=== PATIENT | female | born 1960 | race Caucasian/White ===

== ENCOUNTER → 2023-12-25 14:13 | Outpatient (REF) | payer BC, SELFPAY ==
[2023-12-25 14:46] LABS: % Basophils 1.2 % (0-2); % Eosinophils 3.3 % (0-6); % Immature Granulocytes 0.2 % (0-0.5); % Lymphocytes 46.8 % (20.5-51.1); % Monocytes 4.7 % (1.7-9.3); % Neutrophils 43.8 % (42.2-75.2); Absolute Basophils 0.1 10^3/uL (0-0.2); Absolute Eosinophils 0.2 10^3/uL (0-0.7); Absolute Lymphocytes 2.7 10^3/uL (1.2-3.4); Absolute Monocytes 0.3 10^3/uL (0.1-0.6); Absolute Neutrophils 2.5 10^3/uL (1.4-6.5); Hematocrit 34.1 % (37.0-47.0); Hemoglobin 12.2 g/dL (12.0-16.0); Mean Corp Hgb Conc. 35.8 g/dL (33.0-37.0); Mean Corpuscular Volume 86.5 fL (81.0-99.0); Nucleated Red Blood Cells % 0 %; Platelet Count 232 10^3/uL (130-400); Red Blood Cell Count 3.94 10^6/uL (4.20-5.40); Red Cell Dist. Width 12.1 % (11.5-14.5); White Blood Cell Count 5.8 10^3/uL (4.8-10.8)
[2023-12-25 14:48] LABS: Blood Urea Nitrogen 14 mg/dl (7-17); Calcium 9.3 mg/dl (8.4-10.2); Carbon Dioxide 26 mmol/L (22-30); Chloride 105 mmol/L (98-107); Glucose 107 mg/dl (70-99); Iron 168 ug/dl (37-170); Sodium 137 mmol/L (135-145); eGFR > 60.00
[2023-12-25 14:56] LABS: Potassium 4.4 mmol/L (3.5-5.1)
[2023-12-25 14:57] LABS: Percent Saturation 58 % (20-50); Total Iron Binding Capacity 289 ug/dl (265-497)
[2023-12-25 15:23] LABS: Ferritin 41.4 ng/ml (11.1-264.0)
== END ==
LOC: REG 14:13
PROVIDERS: ATTENDING PHYSICIAN Internal Medicine Hematology & Oncology; FAMILY PHYSICIAN Orthopaedic Surgery; REFERRING PHYSICIAN Family Medicine
DX: D17.9 Benign lipomatous neoplasm, unspecified (principal); Z83.49 Family history of other endocrine, nutritional and metabolic diseases; R79.0 Abnormal level of blood mineral; E83.110 Hereditary hemochromatosis
CPT/HCPCS: 36415; 80048; 82728; 83540; 83550; 85025

== ENCOUNTER → 2024-02-24 12:08 | Outpatient (REF) | payer BC, SELFPAY ==
[2024-02-24 14:00] LABS: % Eosinophils 3.2 % (0-6); % Immature Granulocytes 0.2 % (0-0.5); % Lymphocytes 43.1 % (20.5-51.1); % Monocytes 5.7 % (1.7-9.3); % Neutrophils 46.8 % (42.2-75.2); Absolute Basophils 0.1 10^3/uL (0-0.2); Absolute Eosinophils 0.2 10^3/uL (0-0.7); Absolute Lymphocytes 2.6 10^3/uL (1.2-3.4); Absolute Monocytes 0.3 10^3/uL (0.1-0.6); Absolute Neutrophils 2.8 10^3/uL (1.4-6.5); Hematocrit 36.7 % (37.0-47.0); Hemoglobin 12.7 g/dL (12.0-16.0); Mean Corp Hgb Conc. 34.6 g/dL (33.0-37.0); Mean Corpuscular Hgb 30.9 pg (27.0-31.0); Mean Corpuscular Volume 89.3 fL (81.0-99.0); Nucleated Red Blood Cells % 0 %; Platelet Count 237 10^3/uL (130-400); Red Blood Cell Count 4.11 10^6/uL (4.20-5.40)
[2024-02-24 14:32] LABS: Iron 124 ug/dl (37-170)
[2024-02-24 14:43] LABS: Percent Saturation 43 % (20-50); Total Iron Binding Capacity 285 ug/dl (265-497)
[2024-02-24 15:07] LABS: Ferritin 37.3 ng/ml (11.1-264.0)
== END ==
LOC: REG 12:08
PROVIDERS: ATTENDING PHYSICIAN Family Medicine; FAMILY PHYSICIAN Internal Medicine Hematology & Oncology; OTHER PHYSICIAN Orthopaedic Surgery; REFERRING PHYSICIAN Orthopaedic Surgery
DX: M25.552 Pain in left hip (principal); Z83.49 Family history of other endocrine, nutritional and metabolic diseases; R79.0 Abnormal level of blood mineral; E83.110 Hereditary hemochromatosis; D17.9 Benign lipomatous neoplasm, unspecified; S83.282A Other tear of lateral meniscus, current injury, left knee, initial encounter
CPT/HCPCS: 36415; 73502; 73560; 82728; 83540; 83550; 85025

== ENCOUNTER → 2024-11-26 07:26 | Outpatient (REF) | payer BC, SELFPAY | LOC: MRI 07:26 | PROVIDERS: FAMILY PHYSICIAN Family Medicine | DX: R77.2 Abnormality of alphafetoprotein (principal) | CPT/HCPCS: 74183; 76391; A9575 ==

== ENCOUNTER → 2025-02-03 12:13 | Outpatient (REF) | payer BC, SELFPAY ==
[2025-02-03 13:26] LABS: ALT (SGPT) 22 U/L (0-35); AST (SGOT) 23 U/L (14-36); HDL Cholesterol 42 mg/dl; LDL Cholesterol, Calculated 102 mg/dl; Total Cholesterol 193 mg/dl (50-199); Triglyceride 248 mg/dl (10-149); Very Low Density Lipoprotein 49 mg/dl (0-30)
== END ==
LOC: REG 12:13
PROVIDERS: ATTENDING PHYSICIAN Family Medicine
DX: E78.2 Mixed hyperlipidemia (principal)
CPT/HCPCS: 36415; 80061; 84450; 84460

== ENCOUNTER → 2025-05-13 16:08 | Outpatient (REF) | payer BC, SELFPAY ==
[2025-05-13 16:39] LABS: Hematocrit 35.7 % (37.0-47.0); Hemoglobin 12.1 g/dL (12.0-16.0); Mean Corp Hgb Conc. 33.9 g/dL (33.0-37.0); Mean Corpuscular Volume 89.3 fL (81.0-99.0); Nucleated Red Blood Cells % 0 %; Platelet Count 188 10^3/uL (130-400); Red Cell Dist. Width 11.9 % (11.5-14.5)
[2025-05-13 16:59] LABS: Iron 118 ug/dl (37-170)
[2025-05-13 17:09] LABS: Total Iron Binding Capacity 285 ug/dl (265-497)
[2025-05-13 17:36] LABS: Ferritin 48.9 ng/ml (11.1-264.0)
== END ==
LOC: REG 16:08
PROVIDERS: ATTENDING PHYSICIAN Internal Medicine Hematology & Oncology; FAMILY PHYSICIAN Family Medicine; OTHER PHYSICIAN Nurse Practitioner Adult Health
DX: J45.20 Mild intermittent asthma, uncomplicated (principal); Z83.49 Family history of other endocrine, nutritional and metabolic diseases; R79.0 Abnormal level of blood mineral; E83.110 Hereditary hemochromatosis; R63.4 Abnormal weight loss
CPT/HCPCS: 36415; 71046; 82728; 83540; 83550; 85025

== ENCOUNTER → 2025-06-07 08:51 | Outpatient (REF) | payer BC, MEDICARE, SELFPAY | LOC: DHSLP 08:51 | PROVIDERS: ATTENDING PHYSICIAN Internal Medicine Critical Care Medicine | DX: G47.19 Other hypersomnia (principal); G47.00 Insomnia, unspecified; R06.83 Snoring | CPT/HCPCS: 95800 ==

== ENCOUNTER 2025-09-04 16:20 | Inpatient (IN) | payer MEDICARE, SELFPAY ==
[2025-09-04] VITALS (13 sets, daily range): BP systolic 108–126; BP diastolic 50–71; BMI 25.9
[2025-09-04] MEDS: ZOFRAN 4 MG IV (11:11)
[2025-09-04] MEDS: DILAUDID 1 MG IV (11:11)
[2025-09-04] MEDS: NSS 1000 IV ×2 (11:14→17:26)
[2025-09-04] MEDS: OMNIPAQUE 50 ML PO (11:14)
[2025-09-04 11:32] LABS: Hematocrit 34.4 % (37.0-47.0); Hemoglobin 11.7 g/dL (12.0-16.0); Mean Corp Hgb Conc. 34.0 g/dL (33.0-37.0); Mean Corpuscular Volume 88.4 fL (81.0-99.0); Nucleated Red Blood Cells % 0 %; Platelet Count 184 10^3/uL (130-400); Red Cell Dist. Width 12.1 % (11.5-14.5)
[2025-09-04 11:33] LABS: INR 0.98; PT 13.2 Sec (11.4-14.6)
[2025-09-04 11:34] LABS: APTT 28.0 Sec (23.4-35.0)
[2025-09-04 11:41] LABS: ALT (SGPT) 24 U/L (0-35); AST (SGOT) 20 U/L (14-36); Albumin 4.4 g/dl (3.5-5.0); Alkaline Phosphatase 100 U/L (38-126); Blood Urea Nitrogen 14 mg/dl (7-17); Calcium 9.2 mg/dl (8.4-10.2); Carbon Dioxide 27 mmol/L (22-30); Chloride 100 mmol/L (98-107); Estimated Creatinine Clearance 72 ml/min; Glucose 137 mg/dl (70-99); Lipase 65 U/L (23-300); Potassium 3.9 mmol/L (3.5-5.1); Sodium 132 mmol/L (135-145); Total Protein 7.1 g/dl (6.3-8.2); eGFR > 60.00
--- NOTE | 2025-09-04 12:46 | ED.GENMED ---
History of Present Illness
<Nohemi Combs PA-C - Last Filed: 09/04/25 14:58>
General
Chief Complaint: Abdominal Pain
Time Seen by Provider: 09/04/25 10:09
History of Present Illness
History of Present Illness:
See MDM
Past History
<Nohemi Combs PA-C - Last Filed: 09/04/25 14:58>
Past History
ED Past Medical History: Hypercholesterolemia, Psychiatric and Other (Vestibular migraines)
ED Past Surgical History: Gynecological and Orthopedic
Social History
Tobacco: Non-smoker
Alcohol: None
Drug: None
Personal:
Living: with family
Phy Exam
<Nohemi Combs PA-C - Last Filed: 09/04/25 14:58>
Physical Exam
Physical Exam:
See MDM
Course
<Nohemi Combs PA-C - Last Filed: 09/04/25 14:58>
Orders/Labs/Results
Orders:
Orders
09/04/25 Lunch
NPO
Allow oral meds: Yes
Allow clear liquids: No
NPO with Ice Chips: Yes
09/04/25 10:49
Iohexol [Omnipaque] See Protocol PO NOW STA
09/04/25 10:50
0.9% Sodium Chloride 1000 ml [Nss] 1,000 ml IV BOLUS
09/04/25 11:00
HYDROmorphone [Dilaudid] 1 mg IV NOW STA
Ondansetron Injectable [Zofran] 4 mg IV NOW STA
09/04/25 11:07
Complete Blood Count/With Diff Urgent
Comprehensive Metabolic Panel Urgent
Lactic Acid Urgent
Lipase Urgent
PTT Urgent
Prothrombin Time Urgent
09/04/25 11:58
CT Abd/pel W Iv And Oral Contr Urgent
Comment:
Reason For Exam: colonoscopy. sevre pain
09/04/25 12:49
Piperacillin/Tazo 3.375 Gram [Zosyn] 3.375 gram in 50 ml IV NOW
09/04/25 12:53
HYDROmorphone [Dilaudid] 0.25 mg IV NOW STA
09/04/25 13:27
Electrocardiogram (*1) Urgent
Reason for Study: PreOp
CR Chest Portable - 1 View Urgent
Comment:
Reason For Exam: preop
Reason Study Needs to be Portable: Unable to Transport
09/04/25 13:59
HYDROmorphone [Dilaudid] 0.5 mg IV Q4HPRN PRN
HYDROmorphone [Dilaudid] 1 mg IV Q4HPRN PRN
Ketorolac [Toradol] 15 mg IV Q6HPRN PRN
09/04/25 14:00
0.9% Sodium Chloride 1000 ml [Nss] 1,000 ml IV 125 mls/hr
09/04/25 14:01
Type+Screen Urgent
09/04/25 14:14
Fentanyl Citrate/Pf [Sublimaze] 100 mcg .ROUTE .STK-MED ONE
09/04/25 14:15
0.9% Sodium Chloride 1000 ml [Nss] 1,000 ml IV 125 mls/hr
09/04/25 14:22
Dexamethasone Sod Phosphate [Decadron] 20 mg .ROUTE .STK-MED ONE
Lidocaine HCl/Pf [Xylocaine-Mpf 1% Vial] 50 mg .ROUTE .STK-MED ONE
Metoclopramide [Reglan] 10 mg .ROUTE .STK-MED ONE
Phenylephrine HCl/0.9% NaCl [Alan-Synephrine] 1,000 mcg .ROUTE .STK-MED ONE
Propofol [Diprivan] 20 ml .ROUTE .STK-MED
Rocuronium [place] [Rocuronium] 100 mg .ROUTE .STK-MED ONE
Sugammadex Sodium [Bridion] 200 mg .ROUTE .STK-MED ONE
09/04/25 14:23
Famotidine [Pepcid] 20 mg .ROUTE .STK-MED ONE
Fentanyl Citrate/Pf [Sublimaze] 25 mcg IV [id number] PRN
HYDROmorphone [Dilaudid] 0.25 mg IV PACU-Q5MPRN PRN
HYDROmorphone [Dilaudid] 0.5 mg IV PACU-Q5MPRN PRN
Ondansetron Injectable [Zofran] 4 mg IV PACU-ONCEPRN PRN
Prochlorperazine [Compazine] 5 mg IV PACU-ONCEPRN PRN
09/04/25 14:24
Bupivacaine 0.25%Pf/Epinephrin [Sensorcaine-Epi 0.25%-0.0005] 30 ml .ROUTE .STK-MED ONE
Notify MD As Directed
Notify physician if: for SDS patients with known or suspected sleep obstructive sleep apnea, monitor in the
PACU.
Notify MD for any apneic/desaturation episodes
O2 Therapy [RESP] Urgent
Titrate/Wean O2 to maintain O2 sat greater than (%): 92
Special Instructions: -Provide supplemental oxygen to achieve O2 sat of 92% or greater.
-After 15 min, may wean O2 and discontinue if patient is able to maintain O2 sat of 92%
or greater during recovery period.
If patient is a discharge home, without oxygen therapy, notify anestheiologist if
unable to maintain O2 SAT of 92% or greater on room air for MD clearance.
09/04/25 14:30
Normosol (Mult Electrolytes) [Normosol-R/Plasmalyte-A] 1,000 ml IV PER PROTOCOL
09/04/25 14:45
Succinylcholine Chloride [Succinylcholine] 200 mg .ROUTE .STK-MED ONE
09/04/25 14:48
HYDROmorphone [Dilaudid] 0.5 mg IV Q4HPRN PRN
HYDROmorphone [Dilaudid] 1 mg IV Q4HPRN PRN
Ketorolac [Toradol] 15 mg IV Q6HPRN PRN
09/04/25 14:51
Acetaminophen 1000MG/100Ml [Ofirmev] 1,000 mg in 100 ml .ROUTE .STK-MED
Abnormal Lab Results
09/04/25
11:07
WBC 11.8 H 10^3/uL
(4.8-10.8)
RBC 3.89 L 10^6/uL
(4.20-5.40)
Hgb 11.7 L g/dL
(12.0-16.0)
Hct 34.4 L %
(37.0-47.0)
Absolute Neuts (auto) 9.6 H 10^3/uL
(1.4-6.5)
Absolute Monos (auto) 0.7 H 10^3/uL
(0.1-0.6)
Neutrophils % 81.7 H %
(42.2-75.2)
Lymphocytes % 11.7 L %
(20.5-51.1)
Sodium 132 L mmol/L
(135-145)
Glucose 137 H mg/dl
(70-99)
09/04/25 11:07
09/04/25 11:07
Vital Signs
Initial and Last Documented VS:
Initial Vital Signs
Temp Pulse Resp BP Pulse Ox
36.4 C 71 16 114/71 100
09/04/25 09:43 09/04/25 09:43 09/04/25 09:43 09/04/25 09:43 09/04/25 09:43
Last Documented Vital Signs
Temp Pulse Resp BP Pulse Ox
36.9 C 68 20 123/63 97
09/04/25 11:20 09/04/25 11:20 09/04/25 11:20 09/04/25 14:00 09/04/25 14:00
Anabellalt;Alexander Anderson, DO - Last Filed: 09/04/25 13:36>
Orders/Labs/Results
Orders:
Orders
09/04/25 Lunch
NPO
Allow oral meds: Yes
Allow clear liquids: No
NPO with Ice Chips: Yes
09/04/25 10:49
Iohexol [Omnipaque] See Protocol PO NOW STA
09/04/25 10:50
0.9% Sodium Chloride 1000 ml [Nss] 1,000 ml IV BOLUS
09/04/25 11:00
HYDROmorphone [Dilaudid] 1 mg IV NOW STA
Ondansetron Injectable [Zofran] 4 mg IV NOW STA
09/04/25 11:07
Complete Blood Count/With Diff Urgent
Comprehensive Metabolic Panel Urgent
Lactic Acid Urgent
Lipase Urgent
PTT Urgent
Prothrombin Time Urgent
09/04/25 11:58
CT Abd/pel W Iv And Oral Contr Urgent
Comment:
Reason For Exam: colonoscopy. sevre pain
09/04/25 12:49
Piperacillin/Tazo 3.375 Gram [Zosyn] 3.375 gram in 50 ml IV NOW
09/04/25 12:53
HYDROmorphone [Dilaudid] 0.25 mg IV NOW STA
09/04/25 13:27
Electrocardiogram (*1) Urgent
Reason for Study: PreOp
CR Chest Portable - 1 View Urgent
Comment:
Reason For Exam: preop
Reason Study Needs to be Portable: Unable to Transport
09/04/25 13:59
HYDROmorphone [Dilaudid] 0.5 mg IV Q4HPRN PRN
HYDROmorphone [Dilaudid] 1 mg IV Q4HPRN PRN
Ketorolac [Toradol] 15 mg IV Q6HPRN PRN
09/04/25 14:00
0.9% Sodium Chloride 1000 ml [Nss] 1,000 ml IV 125 mls/hr
09/04/25 14:01
Type+Screen Urgent
09/04/25 14:14
Fentanyl Citrate/Pf [Sublimaze] 100 mcg .ROUTE .STK-MED ONE
09/04/25 14:15
0.9% Sodium Chloride 1000 ml [Nss] 1,000 ml IV 125 mls/hr
09/04/25 14:22
Dexamethasone Sod Phosphate [Decadron] 20 mg .ROUTE .STK-MED ONE
Lidocaine HCl/Pf [Xylocaine-Mpf 1% Vial] 50 mg .ROUTE .STK-MED ONE
Metoclopramide [Reglan] 10 mg .ROUTE .STK-MED ONE
Phenylephrine HCl/0.9% NaCl [Alan-Synephrine] 1,000 mcg .ROUTE .STK-MED ONE
Propofol [Diprivan] 20 ml .ROUTE .STK-MED
Rocuronium [place] [Rocuronium] 100 mg .ROUTE .STK-MED ONE
Sugammadex Sodium [Bridion] 200 mg .ROUTE .STK-MED ONE
09/04/25 14:23
Famotidine [Pepcid] 20 mg .ROUTE .STK-MED ONE
Fentanyl Citrate/Pf [Sublimaze] 25 mcg IV [id number] PRN
HYDROmorphone [Dilaudid] 0.25 mg IV PACU-Q5MPRN PRN
HYDROmorphone [Dilaudid] 0.5 mg IV PACU-Q5MPRN PRN
Ondansetron Injectable [Zofran] 4 mg IV PACU-ONCEPRN PRN
Prochlorperazine [Compazine] 5 mg IV PACU-ONCEPRN PRN
09/04/25 14:24
Bupivacaine 0.25%Pf/Epinephrin [Sensorcaine-Epi 0.25%-0.0005] 30 ml .ROUTE .STK-MED ONE
Notify MD As Directed
Notify physician if: for SDS patients with known or suspected sleep obstructive sleep apnea, monitor in the
PACU.
Notify MD for any apneic/desaturation episodes
O2 Therapy [RESP] Urgent
Titrate/Wean O2 to maintain O2 sat greater than (%): 92
Special Instructions: -Provide supplemental oxygen to achieve O2 sat of 92% or greater.
-After 15 min, may wean O2 and discontinue if patient is able to maintain O2 sat of 92%
or greater during recovery period.
If patient is a discharge home, without oxygen therapy, notify anestheiologist if
unable to maintain O2 SAT of 92% or greater on room air for MD clearance.
09/04/25 14:30
Normosol (Mult Electrolytes) [Normosol-R/Plasmalyte-A] 1,000 ml IV PER PROTOCOL
09/04/25 14:45
Succinylcholine Chloride [Succinylcholine] 200 mg .ROUTE .STK-MED ONE
09/04/25 14:48
HYDROmorphone [Dilaudid] 0.5 mg IV Q4HPRN PRN
HYDROmorphone [Dilaudid] 1 mg IV Q4HPRN PRN
Ketorolac [Toradol] 15 mg IV Q6HPRN PRN
09/04/25 14:51
Acetaminophen 1000MG/100Ml [Ofirmev] 1,000 mg in 100 ml .ROUTE .STK-MED
Abnormal Lab Results
09/04/25
11:07
WBC 11.8 H 10^3/uL
(4.8-10.8)
RBC 3.89 L 10^6/uL
(4.20-5.40)
Hgb 11.7 L g/dL
(12.0-16.0)
Hct 34.4 L %
(37.0-47.0)
Absolute Neuts (auto) 9.6 H 10^3/uL
(1.4-6.5)
Absolute Monos (auto) 0.7 H 10^3/uL
(0.1-0.6)
Neutrophils % 81.7 H %
(42.2-75.2)
Lymphocytes % 11.7 L %
(20.5-51.1)
Sodium 132 L mmol/L
(135-145)
Glucose 137 H mg/dl
(70-99)
09/04/25 11:07
09/04/25 11:07
Vital Signs
Initial and Last Documented VS:
Initial Vital Signs
Temp Pulse Resp BP Pulse Ox
36.4 C 71 16 114/71 100
09/04/25 09:43 09/04/25 09:43 09/04/25 09:43 09/04/25 09:43 09/04/25 09:43
Last Documented Vital Signs
Temp Pulse Resp BP Pulse Ox
36.9 C 68 20 123/63 97
09/04/25 11:20 09/04/25 11:20 09/04/25 11:20 09/04/25 14:00 09/04/25 14:00
<Nohemi Combs PA-C - Last Filed: 09/04/25 14:58>
MDM/Problems Addressed
Differential Diagnosis Includes:
seE mdm
MDM/Problems Addressed:
Note:
CHIEF COMPLAINT(S)
Severe right-sided abdominal pain.
HISTORY OF PRESENT ILLNESS
The patient is a 65 y/o female who presents with severe right-sided abdominal pain that has progressively worsened. The pain started following a colonoscopy with a polypectomy performed two days ago. The patient describes the pain as spreading
across her abdomen. She reports associated symptoms of nausea, bloating, and dizziness. The nausea is severe enough that even water intake exacerbates it. She has not eaten since the preparation for the colonoscopy.
The patient has a history of having had polyps removed five years prior, necessitating the recent colonoscopy. Although she has undergone colonoscopies before, she has never experienced symptoms like these post-procedure. The patient tried to
contact her transmission rebuilder but did not receive a callback.
no fever, chills, vomiting, diarrhea, rectal bleeding
PAST MEDICAL AND SURIGICAL HISTORY
The patient has a history of hemochromatosis, hyperlipidemia (high cholesterol and triglycerides), and recently discovered hypothyroidism, although she is not on medication for the thyroid condition as it is reportedly being 'destroyed.'
ALLERGIES
The patient is allergic to penicillin and adhesive tape. She also reported an allergic reaction to an MRI contrast in the past, which resulted in hives and throat swelling.
[employer]ING [employer]
There is some concern regarding access to immediate follow-up care as the patient could not get in touch with her transmission rebuilder regarding her symptoms post-procedure.
MEDICATIONS
The patient is not on any medication for her newly diagnosed low thyroid levels.
REVIEW OF SYSTEMS
- Gastrointestinal: The patient reports severe right-sided abdominal pain, nausea that is exacerbated even by water, bloating, no bowel movement since the colonoscopy preparation, and no blood in the stool.
- Neurological: The patient reports dizziness.
PHYSICAL EXAM
GENERAL: Alert , in no apparent distress
EYE: pupils equal and reactive
NECK: Supple
ENT: o/p clr, mmm.
CARDIAC: Regular rate and rhythm .
LUNGS: Clear breath sounds bilaterally, no acute respiratory distress, no wheezes/rales/rhonchi
ABDOMEN: Soft, significant abdominal tenderness especially in the right lower quadrant with peritonitis and voluntary guarding , no r/g, no cvat, normal bowel sounds
NEUROLOGICAL: Alert and oriented, no focal neuro deficits
SKIN: Warm and dry, skin intact.
MUSCULOSKELETAL: No edema, well perfused. neg sandy's sign
PSYCH: Normal and appropriate interaction.
PROBLEM LIST
- Acute: Severe right-sided abdominal pain post-colonoscopy, nausea, dizziness.
- Chronic: Hemochromatosis, hyperlipidemia, hypothyroidism (untreated).
PLAN
The patient will be given pain medication for relief. She is to have nothing to eat or drink until further results are available to prevent exacerbation of her symptoms and to prepare her for any potential further testing or interventions.
DIFFERENTIAL DIAGNOSIS
The Differential Diagnosis includes, in no particular order and is not limited to:
1. Post-polypectomy syndrome
2. Intestinal perforation
3. Hemorrhage
4. Colitis
5. Bowel obstruction
6. Diverticulitis
7. Appendicitis
8. Infectious gastroenteritis
9. Electrolyte imbalance
10. Peptic ulcer disease
greg holt 65 y;o F
had colonoscopy 2 days ago outside center
pain, nausea, bloating
peritonitc abdomen, tender RLQ;
ct reading as acute appendicitis, no perf; lactic normal stable vitals
Seen by Dr. Martínez who will take her to the OR
<Nohemi Combs PA-C - Last Filed: 09/04/25 14:58>
*Pulse Oximetry
SaO2: 96
Oxygen Mode of Delivery: Room air
Patient hypoxic: no (97)
*Critical Care Note
Total Time (30-74mins, 75-104mins- exclusive of procedures): Not Applicable
ED Attending Note
<Nohemi Combs PA-C - Last Filed: 09/04/25 14:58>
-
Portions of this chart may have been created with voice recognition software.� Occasional wrong word or��sound alike� substitutions may have occurred due to the inherent limitations of voice recognition software.
<Alexander Anderson DO - Last Filed: 09/04/25 13:36>
ED Attending Note
Patient seen and examined by attending physician: Yes
I performed the substantive portion of visit, reviewed & personally made and approve the management plan that is documented in note by myself or [place].: Yes
ED Attending Note:
I agree with Shelley's note
65-year-old female presents with abdominal pain. She had a recent colonoscopy with polyp removal. She felt fine immediately after the procedure but developed abdominal pain the following day which is increased in intensity today.
Abdomen: Pretty tender to palpation diffusely particular in the right lower quadrant
CT shows acute appendicitis. General discussed with surgery. IV antibiotics and hospitalize
Discharge Plan
Departure
Patient Disposition: Admit
Date of Disposition: 09/04/25
Time of Disposition: 13:25
Admit to: Med/Surg
Admit to doctor: armen
Presentation/result/management discussed w/ accepting MD/DO: armen
Patient with high blood pressure during this ER visit?: No
Condition: Fair
Covid-19: Not Applicable
Discharge Problem:
Acute appendicitis
Interventions
Interventions:
*Risk Screen - Suicide Last Done: 09/04/25 09:44
*General Assessment Last Done: 09/04/25 11:20
*Neglect/Abuse Screening Last Done: 09/04/25 09:44
*ED- Fall Risk Assessment Last Done: 09/04/25 11:20
*ED COVID-19 Vaccine History Last Done: 09/04/25 11:20
*ED Influenza Vaccine History Last Done: 09/04/25 11:20
*Nursing Disposition Last Done: 09/04/25 14:10
KD-Vlhewx-Esqqnsacor Assessment Last Done: 09/04/25 11:20
Discharge Date and Time
Discharge Date/Time: 09/04/25 14:11
[2025-09-04] MEDS: ZOSYN 50 IV ×2 (13:02→17:32)
[2025-09-04] MEDS: DILAUDID 0.25 MG IV (13:02)
--- NOTE | 2025-09-04 13:45 | CON.CRS ---
Consultation
-
Date/Time Consultation Performed: 09/04/25
Performing Provider: Alexander Martínez MD
Reason for Consultation: appendicitis
Medical History
-
History of Present Illness:
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
After the colonoscopy, she was feeling well up until the following day when she developed right sided abdominal pain. The pain continued to worsen and spread more towards the suprapubic region. She has been nauseous, but denies vomiting. She
denies any fevers or chills. She denies any urinary complaints. I reviewed the colonoscopy report, which indicated there was sigmoid diverticulosis and a 3 mm sigmoid polyp, as well as hemorrhoids. She said that the GI doctor had no other
concerns. Her prior colonoscopy was done by Dr. Powell in 2020, which showed a rectal HP and diverticulosis.
In the ED, her WBC was 11.[address] scan showed findings consistent with acute appendicitis without evidence of perforation
Past Medical History
Past Medical History: Other (As above)
Past Surgical History: Other (Right carpal tunnel release, septal surgery, left thumb, LLE tumor resection, left knee meniscus)
Social History
Tobacco: Non-Smoker
Alcohol: None
Drug: None
Personal:
Living: With Family
Family History
Family History: Other (Denies CRC)
Allergies / Home Medications
Allergy/AdvReac Type Severity Reaction Status Date / Time
Gadolinium-Containing Allergy Mild Hives Verified 09/04/25 09:45
Contrast Medi
adhesive Allergy Itching Verified 09/04/25 09:45
bacitracin (From Neosporin Allergy Itching Verified 09/04/25 09:45
([id number]))
neomycin (From Neosporin Allergy Itching Verified 09/04/25 09:45
([id number]))
polymyxin B (From Neosporin Allergy Itching Verified 09/04/25 09:45
([id number]))
cats Allergy Itching Uncoded 09/04/25 09:45
emvironmental Allergy Shortness Uncoded 09/04/25 09:45
of Breath
ointments Allergy Itching Uncoded 09/04/25 09:45
�Medication �Instructions �Recorded �Confirmed �Type
gabapentin 100 mg capsule 300 mg PO DAILY Neurological 12/07/21 09/04/25 History
Condition
cholecalciferol (vitamin D3) 25 1,000 units PO DAILY@1200 12/09/21 09/04/25 History
mcg (1,000 unit) tablet Supplement
ezetimibe 10 mg tablet 10 mg PO DAILY 12/09/21 09/04/25 History
carboxymethylcellulose sodium 0.5 1 drp BOTH EYES DAILY Eye Condition 09/04/25 09/04/25 History
% eye drops (Refresh Tears)
coQ10 (ubiquinol) 100 mg capsule 100 mg PO DAILY@1200 Supplement 09/04/25 09/04/25 History
ibuprofen 200 mg tablet (Advil) 200 mg PO Q6HPRN PRN mild pain 09/04/25 09/04/25 History
levothyroxine 25 mcg tablet 25 mcg PO DAILY Thyroid 09/04/25 09/04/25 History
rosuvastatin 5 mg tablet (Crestor) 5 mg PO DAILY High Cholesterol 09/04/25 09/04/25 History
sertraline 100 mg tablet 100 mg PO DAILY Mental 09/04/25 09/04/25 History
Health/Anxiety
Review of Systems
-
A 10 point review of systems was completed, and was negative except as per HPI.
Physical Exam
Vital Signs
Temp 98.5 F 09/04/25 11:20
Pulse 68 09/04/25 11:20
Resp Rate 20 09/04/25 11:20
Blood pressure 126/68 09/04/25 11:20
SaO2 96 09/04/25 12:49
09/03/25 09/04/25 09/05/25
06:59 06:59 06:59
Actual Weight 79.379 kg
Body Mass Index (BMI) 25.9
Lab Results / Allergies
09/04/25 11:07
09/04/25 11:07
WBC 11.8 10^3/uL (4.8-10.8) H 09/04/25 11:07
Hgb 11.7 g/dL (12.0-16.0) L 09/04/25 11:07
Hct 34.4 % (37.0-47.0) L 09/04/25 11:07
Plt Count 184 10^3/uL (130-400) 09/04/25 11:07
Abs Immat Gran (auto) 0.0 10^3/uL (0-0.05) 09/04/25 11:07
Neutrophils % 81.7 % (42.2-75.2) H 09/04/25 11:07
Allergy/AdvReac Type Severity Reaction Status Date / Time
Gadolinium-Containing Allergy Mild Hives Verified 09/04/25 09:45
Contrast Medi
adhesive Allergy Itching Verified 09/04/25 09:45
bacitracin (From Neosporin Allergy Itching Verified 09/04/25 09:45
([id number]))
neomycin (From Neosporin Allergy Itching Verified 09/04/25 09:45
([id number]))
polymyxin B (From Neosporin Allergy Itching Verified 09/04/25 09:45
([id number]))
cats Allergy Itching Uncoded 09/04/25 09:45
emvironmental Allergy Shortness Uncoded 09/04/25 09:45
of Breath
ointments Allergy Itching Uncoded 09/04/25 09:45
Physical Exam
General: Well Developed and No Apparent Distress
HEENT: Normocephalic and Atraumatic
Respiratory: Non Labored Respirations
Cardiac: S1/S2
GI: Soft, Non Distended and Tender (Moderately tender in the RLQ to suprapubic region, no guarding, subtle focal rebound)
Skin: Warm and Dry
Neuro: AO x 3
Data Reviewed
-
Radiology: Image Personally Visualized and interpreted
Labs: Labs Reviewed by me
Assessment / Plan
-
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 I reviewed
the colonoscopy report, which indicated there was sigmoid diverticulosis and a 3 mm sigmoid polyp, as well as hemorrhoids. Her prior colonoscopy was done by Dr. Powell in 2020, which showed a rectal HP and diverticulosis. In the ED, her WBC was
11.[address] scan showed findings consistent with acute appendicitis without evidence of perforation
�Reviewed the pathophysiology of acute appendicitis; due to timing, it seems that there may be an association between her colonoscopy and the acute appendicitis; however, there was no procedure or manipulation done of the appendiceal orifice, so it
is difficult to say if it led to the appendicitis; I reviewed the treatment options, including nonoperative and operative measures as well as the risks involved with each; after lengthy discussion, patient elects to proceed with surgery
�Keep n.p.o. with IVF
� Pain control with Dilaudid as needed
� IV Zosyn
� Will send type and screen, EKG and CXR for preoperative testing
�If she stays overnight, will order DVT PPx
--- NOTE | 2025-09-04 14:10 | EDRN ---
the nurse from the OR called this RN and verbal report was given
--- NOTE | 2025-09-04 16:17 | W.IMMPOSTOP ---
Addendum entered and electronically signed by Alexander Marítnez MD 09/04/25 16:51:
Updated patient's over the phone
Original Note:
Surgical Immed Post Op Note
-
Primary Surgeon: Alexander Martínez MD
Assisting Surgeon: None
Pre-op Diagnosis: Acute appendicitis
Post-op Diagnosis: Acute perforated appendicitis
Procedure Performed: Laparoscopic appendectomy
Anesthesia Type: General
Specimen / Cultures: Appendix
Estimated Blood Loss: 5 mL
Complications: None
Operative Findings: Inflamed appendix with minimal amount of murky fluid in the right lower quadrant; identified perforation in middle of appendix; base of appendix appeared healthy; stapled with the Moca 45 mm with a lambert load; irrigated the
right lower quadrant and pelvis
--- NOTE | 2025-09-04 16:20 | OR.RPT ---
Operative Report
Operative Report
DATE OF OPERATION: 09/04/2025
SURGEON: Alexander Martínez MD
PREOPERATIVE DIAGNOSIS: Acute appendicitis
POSTOPERATIVE DIAGNOSIS: Acute perforated appendicitis
OPERATION: Laparoscopic appendectomy
ASSISTANTS:
1. None
ANESTHESIA: General
ESTIMATED BLOOD LOSS: 5 mL
FINDINGS:
1. Appendix appeared inflamed and dilated in the midportion with evidence of perforation; small amount of fluid in the right lower quadrant did not appear purulent, but murky
2. Cecum and ascending colon appeared dilated, but healthy; remainder of small bowel not particularly dilated
SPECIMENS:
1. Appendix
DRAINS: None
COMPLICATIONS: No immediate complications.
INDICATIONS: The patient is a 65-year-old female who had a colonoscopy 2 days ago and developed right lower quadrant abdominal pain yesterday. On CT scan, she was found to have acute appendicitis without clear evidence of perforation. Therefore,
I recommended appendectomy. The operation was discussed with the patient in detail, including the risks, benefits and alternatives. Risks described included, but not limited to, bleeding, infection, damage to nearby structures (i.e., bowel, bladder,
epigastric vessels), recurrence, more extensive resection than anticipated, conversion to open, and anesthetic risks. The patient understood and agreed to proceed. The consent was signed and placed in the chart.
PROCEDURE IN DETAIL: The patient was taken to the operating room and placed on the operating table in supine position. Sequential compression devices were placed bilaterally. General anesthesia was induced and the patient was intubated without
complication. The patient was secured to the bed with 1 seatbelt across the thighs, the right arm secured to the armboard and the left arm was tucked. Castillo catheter was placed with sterile technique. Anesthesia placed an orogastric tube. Patient
recently had received IV Zosyn. The abdomen was shaved, prepped and draped in the usual sterile fashion. A time-out was performed verifying the correct patient, procedure, operative site, positioning, and special equipment.
I made a stab incision with an 11 blade scalpel at Chen's point. A Veress needle was used to obtain abdominal access. After 3 clicks, insufflation was initiated and the opening pressure was noted to be less than 8 mmHg. The abdomen was
insufflated to a pressure of 12, which the patient tolerated well. I made a curvilinear incision using a 15 blade infraumbilically. I took this down to the subcutaneous tissue with electrocautery and bluntly with a clamp. Using Optiview and a 5�0
scope, a 5 mm trocar was inserted under direct visualization. The abdomen was examined and no injury from port placement or Veress needle was identified. I placed a 5 mm trocar in the left lower quadrant under direct visualization, taking care to
avoid injury to the epigastric vessels. I upsized the umbilical port to a 12 mm Jackson under direct visualization and inflated the balloon with 20 cc of air. I placed a 5 mm trocar in the suprapubic region under direct visualization, taking care
to avoid injury to the bladder. The patient was placed in Trendelenburg position with the right side up.
The cecum and ascending colon appeared quite dilated, but appeared healthy without evidence of inflammation. The appendix was adherent to the right lower quadrant, turning in toward the pelvis. This was bluntly mobilized. There was no involvement
of the sigmoid or right ovary and fallopian tube, although they were quite close to the inflamed appendix. The appendix was adherent to the wall of the cecum as well as the ligament of Treves. This was carefully mobilized with blunt dissection.
The ligament of Treves was divided with the LigaSure. The appendix appeared to have a perforation in the midportion. The tip of the appendix was close to normal caliber, but the midportion was particularly inflamed and edematous, as well as the
mesentery of the midportion. I began dividing the mesentery of the appendix with the laparoscopic LigaSure, taking care to avoid injury to the terminal ileum or cecum. I was able to visualize the base of the appendix now, which appeared healthy.
The inflamed portion of the appendix began about a centimeter away from the base. I elevated the appendix to expose the base and I divided the appendix using the 45mm laparoscopic linear cutting stapler with a lambert load. The appendix was placed in
an Endocatch bag and placed to the side. The right lower quadrant was closely examined. I irrigated the right lower quadrant and suctioned until clear. The fluid in the pelvis was noted to be serous. Access to the pelvis was limited due to the
redundant sigmoid colon. I irrigated the pelvis and suctioned. Hemostasis at the staple line and mesoappendix was confirmed.
The Joann trocar was deflated and removed. The appendix was removed and passed off. Using the suture passing device, the fascia of the umbilical incision was closed with an [id number] 0 Vicryl stitch. The left lower quadrant port was
removed under direct visualization and no bleeding was noted. The laparoscope and suprapubic port were removed and the abdomen was allowed to desufflate.
The skin of the ports were closed with 4-0 Monocryl in subcuticular fashion. The incisions were injected with a total of 30 mL of 0.25% Marcaine with epinephrine and 0.3 mg of dexamethasone. Steri-Strips, gauze and Tegaderm was used for dressing.
I evaluated the appendix on the back table and confirmed that it was perforated. At this point, the procedure was complete. The patient was awoken and extubated without complication. The castillo was removed. All needle, sponge and instrument counts
were reported as correct. The patient tolerated the procedure well and was transferred to the recovery room in stable condition.
DICTATED BY: Alexander Martínez MD
--- NOTE | 2025-09-04 17:12 | PTCARENOTE ---
Patient admitted from home with acute appendicitis through the emergency room.She went directly yo the OR for a laparoscopic appendectomy.She is alert and oriented.She rates her pain at a 1 out of 10.All 4 lap sites are open to air without
drainage.Vital signs are stable.The patient is in her bed with the call de la paz in reach.
[2025-09-04] MEDS: NEURONTIN 300 MG PO (17:31)
[2025-09-04] MEDS: TYLENOL 1000 MG PO (17:31)
[2025-09-04] MEDS: TORADOL 15 MG IV (17:31)
[2025-09-05] MEDS: ZOSYN 50 IV ×3 (00:02→11:20)
[2025-09-05] MEDS: TYLENOL 1000 MG PO ×3 (00:02→11:21)
[2025-09-05] MEDS: TORADOL 15 MG IV ×3 (00:02→11:21)
[2025-09-05 03:00] VITALS: BP 103/45
[2025-09-05] MEDS: NSS 1000 IV (03:22)
[2025-09-05] MEDS: SYNTHROID 25 MCG PO (05:52)
[2025-09-05 06:00] VITALS: BMI 27.4
[2025-09-05 07:00] VITALS: BP 107/57
[2025-09-05 07:01] LABS: Hematocrit 31.0 % (37.0-47.0); Hemoglobin 10.4 g/dL (12.0-16.0); Mean Corp Hgb Conc. 33.5 g/dL (33.0-37.0); Mean Corpuscular Volume 93.7 fL (81.0-99.0); Nucleated Red Blood Cells % 0 %; Platelet Count 162 10^3/uL (130-400); Red Cell Dist. Width 12.2 % (11.5-14.5)
[2025-09-05] MEDS: ZOLOFT 100 MG PO (07:25)
[2025-09-05] MEDS: NEURONTIN 300 MG PO (07:25)
[2025-09-05] MEDS: ZETIA 10 MG PO (07:25)
[2025-09-05] MEDS: CRESTOR 5 MG PO (07:25)
[2025-09-05 07:33] LABS: Blood Urea Nitrogen 13 mg/dl (7-17); Calcium 8.3 mg/dl (8.4-10.2); Carbon Dioxide 27 mmol/L (22-30); Chloride 103 mmol/L (98-107); Estimated Creatinine Clearance 58 ml/min; Glucose 135 mg/dl (70-99); Potassium 4.1 mmol/L (3.5-5.1); Sodium 136 mmol/L (135-145); eGFR > 60.00
[2025-09-05] MEDS: ROXICODONE 5 MG PO (09:42)
--- NOTE | 2025-09-05 10:05 | W.PN.CRS1 ---
Today's Communication / Plan
-
regular diet
possible d/c later today
continue abx and convert to po as an outpatient
Assessment/Plan
-
POD#1 Laparoscopic appendectomy
WBC: 11.6 (11.8), Hgb 10.4
vitals normal
-Regular diet
-D/C IVFs when tolerating po
-OOB as tolerated
-Lovenox for DVT prophylaxis
-Continue IV zosyn
-OR pathology pending
-Pain control
-Possible d/c later this evening if feeling well and tolerating a po diet. Will need 1 week of Augmentin. Discussed with patient and at bedside.
Subjective Data
Procedure
09/04/2025- Laparoscopic appendectomy
Subjective Data
Date of Service: September 05, 2025
Patient states she feels 'so much better'. She is sore but only has pain when she moves. She has flatus and is urinating. She is hungry.
Objective Data
-
Vital Signs
Temp Pulse Resp BP Pulse Ox
98.6 F 55 16 107/57 96
09/05/25 07:00 09/05/25 07:00 09/05/25 07:00 09/05/25 07:00 09/05/25 07:00
Intake & Output
09/04/25 09/05/25 09/06/25
06:59 06:59 06:59
Intake Total 3090 / 3090
Balance 3090 / 3090
Intake:
Oral fluids 1440 / 1440
IV fluids (Total) 1550 / 1550
normosol 50 / 50
IV piggybacks 100 / 100
Other:
Number of approximated MODERATE 1
amounts of urine
Lab Results
09/05/25 06:36
09/05/25 06:36
Physical Exam
-
General: No Acute Distress and AOx3
Abdomen: Soft, Non Distended and Tender (mild RLQ)
Wound: Dressing in Place
[2025-09-05] MEDS: NSS IV ×2 (10:53→14:56)
[2025-09-05 11:00] VITALS: BP 117/54
--- NOTE | 2025-09-05 13:16 | CM ---
Initial assessment completed with patient with in room. Patient lives with her and father in a 2 story plus basement home, B/B on 2nd and 1/2 bath on , 2 steps to enter. 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
drives. Does not use any DME. In the home is a rollator and quad cane for father's use. No in-home services. Does have a HC-POA. No VA benefits. No psychiatric hospitalizations. PCP is Dr. Sofi Mcgill. Pharmacy is [facility] on [address] in
[place]. Discharge POC: Anticipate home with no needs and PO antibiotics.
--- NOTE | 2025-09-05 14:07 | CM ---
Patient has been medically cleared for discharge to home with no additional skilled services. will transport home. Admission IMM within Medicare 48 hour timeframe.
[2025-09-05 15:00] VITALS: BP 113/50
== END 2025-09-05 17:03 | disposition home or self-care (01) | DRG 399 ==
LOC: 2 SOUTH 16:20
PROVIDERS: Physician Assistant; ADMITTING PHYSICIAN Surgery; EMERGENCY PHYSICIAN Emergency Medicine; FAMILY PHYSICIAN Family Medicine
PROC: 0DTJ4ZZ Resection of Appendix, Percutaneous Endoscopic Approach (ICD-10-PCS; 2025-09-04)
DX: K35.32 Acute appendicitis with perforation, localized peritonitis, and gangrene, without abscess (principal); E03.9 Hypothyroidism, unspecified; E78.00 Pure hypercholesterolemia, unspecified; Z85.831 Personal history of malignant neoplasm of soft tissue; K57.30 Diverticulosis of large intestine without perforation or abscess without bleeding; Z88.1 Allergy status to other antibiotic agents; Z79.890 Hormone replacement therapy; Z79.899 Other long term (current) drug therapy
CPT/HCPCS: 71045; 74177; 80048; 80053; 83605; 83690; 85025; 85610; 85730; 86850; 86900; 86901; 88304; 93005; 96365; 96375; 96376; 99285; Q9967

== ENCOUNTER 2025-09-30 17:54 | Emergency (ER) | payer MEDICARE, OTHER, SELFPAY ==
[2025-09-30 18:01] VITALS: BP 127/80
[2025-09-30 18:16] LABS: Hematocrit 35.6 % (37.0-47.0); Hemoglobin 12.4 g/dL (12.0-16.0); Mean Corp Hgb Conc. 34.8 g/dL (33.0-37.0); Mean Corpuscular Volume 86.8 fL (81.0-99.0); Nucleated Red Blood Cells % 0 %; Platelet Count 210 10^3/uL (130-400); Red Cell Dist. Width 11.9 % (11.5-14.5)
[2025-09-30 18:32] LABS: ALT (SGPT) 27 U/L (0-35); AST (SGOT) 29 U/L (14-36); Albumin 4.9 g/dl (3.5-5.0); Alkaline Phosphatase 98 U/L (38-126); Blood Urea Nitrogen 17 mg/dl (7-17); Calcium 9.6 mg/dl (8.4-10.2); Carbon Dioxide 27 mmol/L (22-30); Chloride 101 mmol/L (98-107); Glucose 134 mg/dl (70-99); Lipase 159 U/L (23-300); Potassium 4.1 mmol/L (3.5-5.1); Sodium 137 mmol/L (135-145); Total Protein 7.8 g/dl (6.3-8.2); eGFR 55.42
[2025-09-30 20:49] VITALS: BP 131/73
[2025-09-30 21:00] VITALS: BP 120/74
[2025-09-30 21:11] VITALS: BMI 25.7
[2025-09-30] MEDS: OMNIPAQUE 50 ML PO (21:17)
--- NOTE | 2025-09-30 21:21 | ED.GENMED ---
History of Present Illness
General
Chief Complaint: Post Operative Problem(s)
Source: patient and family
Time Seen by Provider: 09/30/25 21:08
History of Present Illness
History of Present Illness:
This patient is a 65-year-old female who had a appendectomy laparoscopically on September 04. She went home feeling well and took 1 week of Augmentin upon discharge. She states that the incision at the periumbilical area has always been 'red', but
notes that has been getting progressively worse associating with increasing pain in this area. This got particularly worse today and she describes running errands and going over a speed bump and really feeling increased pain. She says occasionally
she will note minimal purulent discharge from this periumbilical site. She denies fever, chills, dysuria, urgency, frequency, chest pain, dyspnea, vomiting. She does have mild nausea and anorexia. She had 3 loose nonbloody stools today. Patient
denies other complaints
Past History
Past History
ED Past Medical History: Hypercholesterolemia, Psychiatric and Other (Vestibular migraines)
ED Past Surgical History: Appendectomy, Gynecological and Orthopedic
Social History
Tobacco: Non-smoker
Alcohol: None
Drug: None
Personal:
Living: with family
Phy Exam
Physical Exam
Physical Exam:
GENERAL: Alert , in no apparent distress
EYE: pupils equal and reactive
NECK: Supple, no significant adenopathy.
ENT: o/p clr, mmm.
CARDIAC: Regular rate and rhythm .
LUNGS: Clear breath sounds bilaterally, no acute respiratory distress, no wheezes/rales/rhonchi
ABDOMEN: Soft, moderate tenderness to palpation noted particularly at periumbilical site, no r/g, no cvat. There is erythema noted at the periumbilical site without fluctuance, discharge, or other abnormalities
NEUROLOGICAL: Alert and oriented, no focal neuro deficits
SKIN: Warm and dry, skin intact.
MUSCULOSKELETAL: No edema, well perfused.
PSYCH: Normal and appropriate interaction.
Course
Orders/Labs/Results
Orders:
Orders
09/30/25 18:08
Complete Blood Count/With Diff Urgent
Comprehensive Metabolic Panel Urgent
Lipase Urgent
09/30/25 21:09
CT Abd/pel W Iv And Oral Contr Urgent
Comment:
Reason For Exam: abd pain, recent appy
Iohexol [Omnipaque] See Protocol PO NOW STA
09/30/25 21:26
Ketorolac [Toradol] 15 mg .ROUTE .STK-MED ONE
09/30/25 21:27
Ketorolac [Toradol] 15 mg IV NOW STA
10/01/25 01:01
Amoxicillin 875 mg/Clav 125 mg [Augmentin 875 mg/125 mg] 1 tablet PO NOW STA
Abnormal Lab Results
09/30/25
18:08
RBC 4.10 L 10^6/uL
(4.20-5.40)
Hct 35.6 L %
(37.0-47.0)
Creatinine 1.1 H mg/dL
(0.6-1.0)
Glucose 134 H mg/dl
(70-99)
09/30/25 18:08
09/30/25 18:08
Vital Signs
Initial and Last Documented VS:
Initial Vital Signs
Temp Pulse Resp BP Pulse Ox
98.4 F 94 20 127/80 96
09/30/25 18:01 09/30/25 18:01 09/30/25 18:01 09/30/25 18:01 09/30/25 18:01
Last Documented Vital Signs
Temp Pulse Resp BP Pulse Ox
98.4 F 68 22 109/63 97
09/30/25 18:01 09/30/25 23:30 09/30/25 23:15 09/30/25 23:00 09/30/25 23:30
*Pulse Oximetry
SaO2: 98
Oxygen Mode of Delivery: Room air
Patient hypoxic: no
*Critical Care Note
Total Time (30-74mins, 75-104mins- exclusive of procedures): Not Applicable
Update Note
Update Note:
Patient presents to the Emergency Department with ____abdominal pain post appendectomy
Number and Complexity of Problems Addressed at the Encounter
� Chronic conditions affecting care:
� Acute Exacerbation and/or Progression of Chronic Illness:
� Differential Diagnosis includes: But not limited to cellulitis, intra-abdominal abscess, fistula, etc. etc.
Amount and/or Complexity of Data to be Reviewed and Analyzed
� I performed an independent evaluation of and my interpretation is:
EKG:
CT: CT abdomen pelvis with IV and oral contrast no acute intra-abdominal pathology no bowel obstruction or inflammation appendix is surgically absent no hydronephrosis or nephrolithiasis no free air or free fluid periumbilical
fat stranding likely taking 80 recent laparoscopy.
Xrays:
Laboratory Studies: Normal white blood cell count, normal LFTs, minimal creatinine elevation
Other:
� Review of other/old records reveals: Colorectal surgery progress note from September 05 reviewed
� Clinical information was obtained by an independent historian: who is at bedside
� Prescriptions/Medications Considered but not given:
� Further testing considered but not performed:
Risk of Complications and/or Morbidity or Mortality of Patient Management
� Social determinants of health affecting care:
� Discussion with other providers (PCP, Hospitalists, Consultants, etc):
� Escalation of care including admission/observation vs risk of discharge considered: [facility] radiology report reviewed, no intra-abdominal pathology noted.
Case discussed with Dr. Galicia, photo shared, we mutually suspect she has a cellulitis of periumbilical site, no other intra-abdominal abnormalities noted. I will cover her with Augmentin for the next 7 days and instruct her for close follow-up.
ED Attending Note
-
Portions of this chart may have been created with voice recognition software.� Occasional wrong word or��sound alike� substitutions may have occurred due to the inherent limitations of voice recognition software.
Discharge Plan
Departure
Patient Disposition: Home (Routine Discharge)
Date of Disposition: 10/01/25
Time of Disposition: 00:59
Patient with high blood pressure during this ER visit?: Yes
Discharge Problem:
Cellulitis
Instructions: Cellulitis (skin infection) in adults - ED (DC), BLOOD PRESSURE
Prescriptions:
New
amoxicillin-pot clavulanate 875-125 mg tablet
1 tab PO BID Qty: 14 0RF
No Action
gabapentin 100 MG capsule
300 mg PO DAILY
ezetimibe 10 MG tablet
10 mg PO DAILY
cholecalciferol (vitamin D3) 1,000 UNITS tablet
1,000 units PO DAILY@1200
levothyroxine 25 mcg Tablet
25 mcg PO DAILY
sertraline 100 mg Tablet
100 mg PO DAILY
carboxymethylcellulose sodium [Refresh Tears] 0.5 % Drops
1 drp BOTH EYES DAILY
ibuprofen [Advil] 200 mg Tablet
200 mg PO Q6HPRN PRN (Reason: mild pain)
rosuvastatin [Crestor] 5 mg Tablet
5 mg PO DAILY
coQ10 (ubiquinol) 100 mg Capsule
100 mg PO DAILY@1200
amoxicillin-pot clavulanate 875-125 mg tablet
1 tab PO BID 7 Days Qty: 14 0RF
oxycodone 5 mg tablet
5 mg PO Q6H PRN (Reason: Pain) Qty: 20 0RF
Referrals:
Alexander Martínez MD [Active, [facility]] - Follow up in 2-3 days
Sofi Mcgill MD [Family Provider, Family Practice]
Activity Restrictions/Additional Instructions:
IF YOU DEVELOP WORSENING NEW OR PERSISTENT PAIN, VOMITING, FEVER, NEW OR PERSISTENT DRAINAGE, GET WORSE, DO NOT GET BETTER, OR OTHER WORRISOME SIGNS, PLEASE RETURN TO THE ER IMMEDIATELY!
Interventions
Interventions:
*General Assessment Last Done: 09/30/25 18:01
*Neglect/Abuse Screening Last Done: 09/30/25 18:01
*ED COVID-19 Vaccine History Last Done: 09/30/25 21:10
*ED Influenza Vaccine History Last Done: 09/30/25 21:10
[facility] Fall Risk Assessment Tool Last Done: 09/30/25 21:36
*Risk Screen - Suicide (C-SSRS) Last Done: 09/30/25 21:10
*Nursing Disposition Last Done: 10/01/25 01:26
JK-Dvedtj-Evfdszhcqm Assessment Last Done: 09/30/25 21:34
ED-Skin Assessment Last Done: 09/30/25 21:34
Discharge Date and Time
Discharge Date/Time: 10/01/25 01:27
Print Language: PRYDEINIG
[2025-09-30] MEDS: TORADOL 15 MG IV (21:28)
[2025-09-30 22:00] VITALS: BP 110/60
[2025-09-30 23:00] VITALS: BP 109/63
[2025-10-01] MEDS: AUGMENTIN 875 MG/125 MG 1 TABLET PO (01:16)
== END 2025-10-01 01:27 | disposition home or self-care (01) ==
LOC: EMR 17:54
PROVIDERS: Student in an Organized Health Care Education/Training Program; EMERGENCY PHYSICIAN Emergency Medicine; FAMILY PHYSICIAN Family Medicine
DX: L03.311 Cellulitis of abdominal wall (principal); R11.0 Nausea; R63.0 Anorexia; E78.00 Pure hypercholesterolemia, unspecified; Z90.49 Acquired absence of other specified parts of digestive tract
CPT/HCPCS: 99284; 96374; 74177; 80053; 83690; 85025; Q9967